=== PATIENT | male | born 1990 | race Caucasian/White ===

== ENCOUNTER 2016-10-29 13:31 | Emergency (ER) | payer OTHER ==
[~2016-10-29 13:31] MED LIST: NO MEDICATIONS; PERCOCET 7.5-31 EACH PO
[2016-10-29 14:00] LABS: BASOPHIL% 0.3 % (0-2.5); EOSINOPHIL# 0.1 X10e3 (0-0.7); EOSINOPHIL% 0.6 % (0.0-7.0); HEMATOCRIT 43.2 % (38.0-50.0); LYMPHOCYTE% 17.7 % (17.0-45.0); MEAN CELL VOLUME 87.1 FL (83-96); MEAN CORPUSCULAR HEMOGLOBIN 30.3 PG (28-34); MEAN CORPUSCULAR HGB CONC 34.8 g/dL (30-36); MEAN PLATELET VOLUME 7.4 FL (6.5-11.5); MONOCYTE% 8.7 % (3.0-12.0); NEUTROPHIL% 72.7 % (40-75); PLATELET COUNT 278 X10e3 (140-420); RED BLOOD COUNT 4.96 X10e (3.90-5.60); RED CELL DISTRIBUTION WIDTH 12.6 % (11.0-15.5); WHITE BLOOD COUNT 11.1 X10e3 (4.0-10.5)
[2016-10-29 14:02] LABS: DIFF IND NO
[2016-10-29 14:26] LABS: ALBUMIN SERUM 4.8 g/dL (3.5-5.0); ALKALINE PHOSPHATASE 64 U/L (32-92); ALT (SGPT) 12 U/L (10-40); AST (SGOT) 22 U/L (10-42); BILIRUBIN, DIRECT 0.2 mg/dL (0.0-0.2); BILIRUBIN,INDIRECT 0.7 mg/dL (0.0-0.9); BILIRUBIN,TOTAL 0.9 mg/dL (0.2-2.0); BLOOD UREA NITROGEN 5 mg/dL (9-23); BUN/CREATININE RATIO 7.14; CALCIUM SERUM 9.8 mg/dL (8.4-10.2); CARBON DIOXIDE 23 mmol/L (22-31); CHLORIDE 101 mmol/L (100-111); CREATININE SERUM 0.7 mg/dL (0.6-1.4); GLOM FILT RATE Estimated ABOVE60 mL/min (>60); GLUCOSE FASTING 78 mg/dL (70-110); POTASSIUM 3.6 mmol/L (3.5-5.1); PROTEIN TOTAL SERUM 7.9 g/dL (6.0-8.3); SODIUM 135 mmol/L (135-145)
== END 2016-10-29 14:30 | disposition home or self-care (01) ==
LOC: CED 13:31
PROVIDERS: Emergency Medicine
DX: F19.10 Other psychoactive substance abuse, uncomplicated (principal); F17.210 Nicotine dependence, cigarettes, uncomplicated
CPT/HCPCS: 36415; 80048; 80076; 85025; 99283

== ENCOUNTER 2016-11-08 06:13 | Emergency (ER) | payer OTHER ==
--- NOTE | ~2016-11-08 | CR72 ---
[facility] A Service [facility] RADIOLOGY TEXT RESULTS PATIENT: MARICHUY CHAVARRIA LOCATION: [facility] : [birth year] UNIT #: [id number] AGE: [address]: Yahaira Cuellar MD SEX: M ORDER DR: [id number] [place], [place] [address] [id number] MR#: [id number] Acc #: [id number] NAME: MARICHUY CHAVARRIA. : 1990 SEX: M STUDY DATE/TIME: 11/08/2016 5:12 UNIT: [facility] ROOM: STUDY DESCRIPTION: CR Chest Single View Portable Attending Physician: Yahaira Cuellar M.D. Ordering Physician: Ronnie Dash M.D. Primary Care Physician: No Primary Care Physician MEDICAL IMAGING REPORT This report is preliminary unless electronic signature is present EXAM Frontal chest. DATE OF EXAM 11/08/2016 INDICATIONS 26-year-old male with dyspnea, chest pain, tachycardia, symptoms began yesterday after using meth. REPORT Frontal chest compared with 10/27/2016. FINDINGS Patient is rotated to the right. Cardiac silhouette is within normal limits for technique. The vascularity is unremarkable. Lungs are clear. No effusion or pneumothorax. IMPRESSION Negative frontal chest for active disease. No pneumothorax. Dictated by... Lawson Chavez M.D. THIS IS AN ELECTRONICALLY VERIFIED REPORT Lawson Chavez M.D. at 11/08/2016 10:13 PM AMADO/bradly TD: 11/08/2016 15:46 JOB #: [id number] MEDICAL IMAGING REPORT [facility] A Service [facility] RADIOLOGY TEXT RESULTS PATIENT: MARICHUY CHAVARRIA LOCATION: [facility] : [birth year] UNIT #: [id number] AGE: [address]: Yahaira Cuellar MD SEX: M ORDER DR: Page 1 of 1 COPY
--- NOTE | ~2016-11-08 | EKG ---
PATIENT: MARICHUY CHAVARRIA UNIT #: [id number] Ventricular Rate: 116 BPM Atrial Rate: 116 BPM P-R Interval: 130 ms QRS Duration: 86 ms Q-T Interval: 366 ms QTC Calculation(Bezet): 508 ms P Kamrar: 77 degrees Calculated R Kamrar: 73 degrees Calculated T Kamrar: 54 degrees Diagnosis Line: Sinus tachycardia Diagnosis Line: Baseline wander Otherwise normal ECG Diagnosis Line: No previous ECGs available Diagnosis Line: Confirmed by DIMA ZAMORA MD ([id number]) on 11/10/2016 Diagnosis Line: 10:50:19 PM INTERPRETING MD: NOAH BLACKWELL
[2016-11-08 05:28] LABS: BASOPHIL# 0.1 X10e3 (0-0.3); BASOPHIL% 0.4 % (0-2.5); EOSINOPHIL# 0.1 X10e3 (0-0.7); EOSINOPHIL% 0.4 % (0.0-7.0); HEMATOCRIT 48.4 % (38.0-50.0); HEMOGLOBIN 16.8 gm/dL (13.0-16.0); LYMPHOCYTE# 2.9 X10e3 (1.0-3.5); LYMPHOCYTE% 20.9 % (17.0-45.0); MEAN CELL VOLUME 86.7 FL (83-96); MEAN CORPUSCULAR HEMOGLOBIN 30.1 PG (28-34); MEAN CORPUSCULAR HGB CONC 34.7 g/dL (30-36); MEAN PLATELET VOLUME 7.4 FL (6.5-11.5); MONOCYTE# 1.5 X10e3 (0-1.0); MONOCYTE% 11.3 % (3.0-12.0); NEUTROPHIL# 9.2 X10e3 (1.5-7.1); PLATELET COUNT 355 X10e3 (140-420); RED BLOOD COUNT 5.58 X10e (3.90-5.60); RED CELL DISTRIBUTION WIDTH 12.4 % (11.0-15.5); WHITE BLOOD COUNT 13.7 X10e3 (4.0-10.5)
[2016-11-08 05:29] LABS: DIFF IND NO
[2016-11-08 06:00] LABS: POC - CKMB 1.5 ng/mL (0.0-7.9); POC - TROPONIN <0.05 ng/mL (<=0.05)
[2016-11-08 06:01] LABS: ALKALINE PHOSPHATASE 72 U/L (32-92); ALT (SGPT) 21 U/L (10-40); AST (SGOT) 42 U/L (10-42); BILIRUBIN, DIRECT 0.2 mg/dL (0.0-0.2); BILIRUBIN,TOTAL 1.2 mg/dL (0.2-2.0); BLOOD UREA NITROGEN 8 mg/dL (9-23); CARBON DIOXIDE 21 mmol/L (22-31); CHLORIDE 96 mmol/L (100-111); GLOM FILT RATE Estimated 104.9 mL/min (>60); GLUCOSE FASTING 94 mg/dL (70-110); POTASSIUM 3.4 mmol/L (3.5-5.1); PROTEIN TOTAL SERUM 8.2 g/dL (6.0-8.3); SODIUM 134 mmol/L (135-145)
[2016-11-08 06:03] LABS: ALCOHOL BLOOD <5 mg/dL (0)
[2016-11-08 06:47] LABS: AMPHETAMINE POS (NEG); BARBITURATES NEG (NEG); BENZODIAZEPINES NEG (NEG); COCAINE NEG (NEG); MARIJUANA POS (NEG); OPIATES NEG (NEG); TRICYCLIC ANTIDEPRESSANTS NEG (NEG); U METHADONE NEG (NEG)
[2016-11-08 08:12] LABS: POC - CKMB 1.5 ng/mL (0.0-7.9); POC - TROPONIN <0.05 ng/mL (<=0.05)
== END 2016-11-08 08:40 | disposition home or self-care (01) ==
LOC: CED 06:13
PROVIDERS: Emergency Medicine; Student in an Organized Health Care Education/Training Program
DX: F15.90 Other stimulant use, unspecified, uncomplicated (principal); R00.2 Palpitations
CPT/HCPCS: 36415; 71010; 80048; 80076; 80307; 82553; 84484; 85025; 93005; 96361; 96374; 99284; G0480; J2060

== ENCOUNTER 2017-04-17 23:01 | Emergency (ER) | payer OTHER ==
[~2017-04-17] VITALS: Ht 172.7 cm; Wt 68.0 kg
[2017-04-18 02:34] LABS: URINE SOURCE CLEAN CATCH
[2017-04-18 02:38] LABS: URINE APPEARANCE CLOUDY; URINE BLOOD NEG (NEG); URINE COLOR DK YELLOW; URINE GLUCOSE NEG (NEG); URINE KETONE TRACE (NEG); URINE LEUKOCYTE ESTERASE 3+ (NEG); URINE NITRATE NEG (NEG); URINE PROTEIN 1+ (NEG); URINE SPECIFIC GRAVITY 1.029 (1.003-1.035)
[2017-04-18 02:40] LABS: CULTURE INDICATED? YES; URINE BACTERIA AUWI NEG (NEGATIVE); URINE SQUAMOUS EPITHELIAL CELL NONE SEEN /[HPF]; UWBCS1 AUWI INNUM (0-5)
[2017-04-18 03:05] LABS: AMPHETAMINE POS (NEG); BARBITURATES NEG (NEG); BENZODIAZEPINES NEG (NEG); COCAINE NEG (NEG); MARIJUANA NEG (NEG); OPIATES POS (NEG); TRICYCLIC ANTIDEPRESSANTS NEG (NEG); U METHADONE NEG (NEG)
[2017-04-18 03:09] LABS: URINE BILIRUBIN NEG (NEG)
[2017-04-22 10:39] LABS: CHLAMYDIA TRACH Not Detected (Not Detected); N GONOR Detected (Not Detected)
== END 2017-04-18 06:05 | disposition home or self-care (01) ==
LOC: CED 23:01
PROVIDERS: Emergency Medicine
DX: T23.201A Burn of second degree of right hand, unspecified site, initial encounter (principal); T79.9XXA Unspecified early complication of trauma, initial encounter; R36.9 Urethral discharge, unspecified; F15.10 Other stimulant abuse, uncomplicated; F11.10 Opioid abuse, uncomplicated; F17.200 Nicotine dependence, unspecified, uncomplicated; X08.8XXA Exposure to other specified smoke, fire and flames, initial encounter; Y92.9 Unspecified place or not applicable
CPT/HCPCS: 80307; 81003; 87086; 87491; 87591; 90471; 90715; 96361; 96374; 99284; J0696